=== PATIENT | female | born 1995 | race Hispanic/Latino ===

== ENCOUNTER 2025-03-30 13:19 | Outpatient (CLI) | payer BC | END 2025-03-30 13:20 | disposition home or self-care (01) | LOC: CSHULT 13:19 | PROVIDERS: ATTEND Family Medicine | DX: O09.92 Supervision of high risk pregnancy, unspecified, second trimester (principal); Z3A.21 21 weeks gestation of pregnancy | CPT/HCPCS: 76805 ==